=== PATIENT | male | born 1945 | race African-American/Black ===

== ENCOUNTER 2020-07-23 15:01 | Inpatient (IN) | payer MEDICARE, MEDICAID ==
[~2020-07-23] VITALS: Ht 182.9 cm; Wt 49.4 kg
[2020-07-23] MEDS ORDERED: SODIUM CHLORIDE 0.9% 1,000 ML IV ONE (15:30)
[2020-07-23 16:15] LABS: BASOPHILS % 0.1 % (0.0-2.0); EOSINOPHILS % 0.2 % (0.0-5.0); HEMATOCRIT. 39.3 % (42.0-52.0); MEAN CORPUSCULAR HEMOGLOBIN 29.9 pg (28.0-32.0); MEAN CORPUSCULAR VOLUME 90.2 fL (80.0-94.0); MEAN PLATELET VOLUME 9.9 fl (7.4-10.4); MONOCYTES % 5.7 % (2.0-8.0); PLATELET 85 x1000/uL (130-400); RED BLOOD CELL COUNT 4.36 mill/uL (4.7-6.1); RED CELL DISTRIBUTION WIDTH 14.3 % (11.6-14.6)
[2020-07-23 16:19] LABS: CHLORIDE 91 mEq/L (98-107)
[2020-07-23 16:24] LABS: ETHANOL BLOOD 17 mg/dL
[2020-07-23] MEDS ORDERED: AZITHROMYCIN 500 MG in DEXT 5% WATER 250 ML IV SCH (17:45)
[2020-07-23] MEDS ORDERED: CEFTRIAXONE 1 G PREMIX 50 ML IV ONE (17:45)
[2020-07-23] MEDS ORDERED: ACETAMINOPHEN 650MG SUPP PR PRN (19:00)
[2020-07-23] MEDS ORDERED: GUAIFENESIN 200MG/10ML SUGAR FREE UDC PO PRN (19:00)
[2020-07-23] MEDS ORDERED: CLONIDINE 0.1MG TABLET PO PRN (19:00)
[2020-07-23] MEDS ORDERED: ACETAMINOPHEN 325MG TABLET PO PRN (19:00)
[2020-07-23] MEDS ORDERED: NA PHOS,M-B/NA PHOS,DI-BA ENEMA 118ML PR PRN (19:00)
[2020-07-23] MEDS ORDERED: MAGNESIUM/ALUMINUM HYDROXIDE/SIMETHICONE 30ML UDC PO PRN (19:00)
[2020-07-23 19:45] LABS: KETONES URINE NEGATIVE (NEGATIVE); LEUKOCYTE ESTERASE URINE TRACE (NEGATIVE); NITRITE URINE NEGATIVE (NEGATIVE); OCCULT BLOOD URINE TRACE (NEGATIVE); PH URINE 5.5 (4.5-8.0); PROTEIN URINE NEGATIVE (NEGATIVE); SPECIFIC GRAVITY URINE 1.008 (1.005-1.030)
[2020-07-23 19:53] LABS: CLARITY URINE SLIGHTLY HAZY (CLEAR); COLOR URINE DARK YELLOW (YELLOW)
[2020-07-23 20:03] LABS: *AMPHETAMINES SCREEN URINE NEGATIVE (NEGATIVE)
[2020-07-23 20:04] LABS: *BARBITURATES SCREEN URINE NEGATIVE (NEGATIVE); *BENZODIAZEPINES SCREEN URINE NEGATIVE (NEGATIVE); *COCAINE SCREEN URINE PRESUMTIVE POSITIVE (NEGATIVE); METHADONE URINE SCREEN NEGATIVE (NEGATIVE); OPIATES URINE SCREEN NEGATIVE (NEGATIVE)
[2020-07-23 20:06] LABS: CANNABINOID URINE SCREEN NEGATIVE (NEGATIVE); PHENCYCLIDINE URINE SCREEN NEGATIVE (NEGATIVE)
[2020-07-23] MEDS: SODIUM CHLORIDE 0.9% 1,000 ML IV SCH (21:14)
[2020-07-24] VITALS (8 sets, daily range): BP systolic 102–133; BP diastolic 57–70
[2020-07-24] MEDS: TAMSULOSIN HCL 0.4MG SR CAPSULE PO SCH ×2 (01:14→08:49)
[2020-07-24] MEDS ORDERED: SUMA50TA16 PO (01:21)
[2020-07-24] MEDS ORDERED: OMEP40CA12 PO (01:21)
[2020-07-24 07:29] LABS: CHLORIDE 98 mEq/L (98-107)
[2020-07-24 07:32] LABS: HDL CHOLESTEROL 79 mg/dL (40-59)
[2020-07-24 07:34] LABS: LDL CHOLESTEROL 35 mg/dL (5-100)
[2020-07-24 07:40] LABS: BASOPHILS % 0.2 % (0.0-2.0); EOSINOPHILS % 1.9 % (0.0-5.0); HEMATOCRIT. 31.7 % (42.0-52.0); HEMOGLOBIN. 10.8 g/dL (14.0-18.0); LYMPHOCYTES % 14.2 % (20.0-50.0); MEAN CORPUSCULAR HEMOGLOBIN 30.2 pg (28.0-32.0); MEAN CORPUSCULAR VOLUME 88.7 fL (80.0-94.0); MEAN PLATELET VOLUME 10.6 fl (7.4-10.4); MONOCYTES % 5.1 % (2.0-8.0); NEUTROPHILS % 78.6 % (40.0-76.0); PLATELET 65 x1000/uL (130-400); RED BLOOD CELL COUNT 3.58 mill/uL (4.7-6.1); RED CELL DISTRIBUTION WIDTH 14.4 % (11.6-14.6)
[2020-07-24] MEDS ORDERED: POTASSIUM CHLORIDE 20MEQ TABLET SR PO SCH ×2 (12:00→16:00)
[2020-07-24] MEDS: ASPIRIN 81MG TABLET PO SCH (12:08)
[2020-07-24] MEDS: SODIUM CHLORIDE 0.9% 1,000 ML IV SCH (13:06)
[2020-07-24] MEDS ORDERED: MEGE40TA5 MT (13:29)
[2020-07-24] MEDS ORDERED: CEFTRIAXONE 1 G PREMIX 50 ML IV SCH (14:30)
[2020-07-24] MEDS: PREDNISONE 20MG TABLET PO SCH (15:23)
[2020-07-24] MEDS: DEXT 5%/0.9% NACL 1,000 ML IV SCH (15:24)
[2020-07-24 17:01] LABS: INR 1.1; PROTHROMBIN TIME 11.8 sec (9.6-11.0)
[2020-07-24] MEDS ORDERED: ENOXAPARIN 60MG/0.6ML SYR SUBCUT SCH (18:00)
[2020-07-24] MEDS: CEFTRIAXONE 1,000 MG in DEXTROSE 5% WATER 50 ML IV SCH (18:47)
[2020-07-24] MEDS: DILTIAZEM HCL 30MG TABLET PO SCH (22:53)
[2020-07-24] MEDS ORDERED: MAGNESIUM 2 G PREMIX 50 ML IV NR (23:30)
[2020-07-25] VITALS: BP 106/55
[2020-07-25] MEDS: DEXT 5%/0.9% NACL 1,000 ML IV SCH ×3 (00:30→20:30)
[2020-07-25 04:00] VITALS: BP 118/58
[2020-07-25 05:37] LABS: HEMATOCRIT. 31.5 % (42.0-52.0); HEMOGLOBIN. 10.8 g/dL (14.0-18.0); MEAN CORPUSCULAR HEMOGLOBIN 30.2 pg (28.0-32.0); MEAN CORPUSCULAR VOLUME 87.9 fL (80.0-94.0); MEAN PLATELET VOLUME 10.7 fl (7.4-10.4); PLATELET 57 x1000/uL (130-400); RED BLOOD CELL COUNT 3.59 mill/uL (4.7-6.1); RED CELL DISTRIBUTION WIDTH 14.2 % (11.6-14.6)
[2020-07-25 06:19] LABS: CHLORIDE 100 mEq/L (98-107)
[2020-07-25] MEDS: DILTIAZEM HCL 30MG TABLET PO SCH ×3 (06:27→21:54)
[2020-07-25 06:43] LABS: VITAMIN B12 SERUM 1011 pg/mL (211-911)
[2020-07-25 08:00] VITALS: BP 115/66
[2020-07-25] MEDS: ASPIRIN 81MG TABLET PO SCH (08:21)
[2020-07-25] MEDS: TAMSULOSIN HCL 0.4MG SR CAPSULE PO SCH (08:33)
[2020-07-25] MEDS: PREDNISONE 20MG TABLET PO SCH (08:34)
[2020-07-25 08:59] LABS: T4 FREE 0.93 ng/dL (0.76-1.46)
[2020-07-25] MEDS ORDERED: APIXABAN 5 MG TABLET PO SCH (09:00)
[2020-07-25 12:00] VITALS: BP 108/56
[2020-07-25 14:27] LABS: PLATELET ESTIMATE DECREASED
[2020-07-25 16:00] VITALS: BP 94/56
[2020-07-25] MEDS ORDERED: IPRATROPIUM/ALBUTEROL 0.5-3(2.5)MG/3ML NEB HHN PRN (16:15)
[2020-07-25] MEDS: CEFTRIAXONE 1,000 MG in DEXTROSE 5% WATER 50 ML IV SCH (17:36)
[2020-07-25 18:14] LABS: CREATINE KINASE 354 IU/L (39-308)
[2020-07-25 18:15] LABS: CREATINE KINASE MB FRACTION 6.7 ng/mL (0.5-3.6)
[2020-07-25 20:00] VITALS: BP 113/46
[2020-07-25] MEDS: IPRATROPIUM/ALBUTEROL 0.5-3(2.5)MG/3ML NEB HHN SCH (20:43)
[2020-07-25] MEDS: DIPHENHYDRAMINE 50MG/ML VIAL IV PRN (21:54)
[2020-07-26] VITALS (9 sets, daily range): BP systolic 97–151; BP diastolic 51–92
[2020-07-26] MEDS: IPRATROPIUM/ALBUTEROL 0.5-3(2.5)MG/3ML NEB HHN SCH (01:11)
[2020-07-26] MEDS: DILTIAZEM HCL 30MG TABLET PO SCH ×2 (06:18→15:23)
[2020-07-26 06:53] LABS: HEMATOCRIT. 33.3 % (42.0-52.0); MEAN CORPUSCULAR HEMOGLOBIN 29.6 pg (28.0-32.0); MEAN CORPUSCULAR VOLUME 89.8 fL (80.0-94.0); MEAN PLATELET VOLUME 10.5 fl (7.4-10.4); PLATELET 59 x1000/uL (130-400); RED BLOOD CELL COUNT 3.71 mill/uL (4.7-6.1); RED CELL DISTRIBUTION WIDTH 14.3 % (11.6-14.6)
[2020-07-26 07:06] LABS: CHLORIDE 103 mEq/L (98-107)
[2020-07-26 07:14] LABS: PHOSPHORUS 1.3 mg/dL (2.5-4.9)
[2020-07-26 07:15] LABS: CREATINE KINASE 244 IU/L (39-308)
[2020-07-26] MEDS ORDERED: DIGOXIN 500MCG/2ML AMP IV NR ×2 (07:28→12:15)
[2020-07-26] MEDS: ASPIRIN 81MG TABLET PO SCH (09:00)
[2020-07-26] MEDS ORDERED: ONDANSETRON HCL 4MG/2ML INJ IV PRN ×2 (09:00→11:45)
[2020-07-26] MEDS ORDERED: FUROSEMIDE 40MG/4ML VIAL IVP SCH ×2 (09:00→13:30)
[2020-07-26] MEDS: TAMSULOSIN HCL 0.4MG SR CAPSULE PO SCH (09:00)
[2020-07-26] MEDS ORDERED: FAMOTIDINE 20MG/2ML VIAL IV SCH ×2 (09:00→13:30)
[2020-07-26 11:36] LABS: BG BASE EXCESS -1.4 mmol/L (-2.0-2.0); BG CARBOXYHEMOGLOBIN 0.3 % (0.5-1.5); BG DEOXYHEMOGLOBIN 16.2 % (0.0-5.0); BG FRACTION INSPIRED OXYGEN 32; BG HCO3 ACT 21.8 mmol/L (22.0-26.0); BG METHEMOGLOBIN 0.2 % (0.0-1.5); BG OXYGEN SATURATION 83.7 % (92.0-98.5); BG OXYHEMOGLOBIN 83.3 % (94.0-97.0); BG PCO2 31.9 mmHg (35.0-45.0); BG PH 7.452 (7.350-7.450); BG PO2 45.7 mmHg (75.0-100.0); BG SAMPLE SITE RIGHT BRACHIAL; BG VENT MODE NASAL CANNULA
[2020-07-26] MEDS ORDERED: SODIUM PHOS,M-BASIC-D-BASIC 10 MM in DEXT 5% WATER 246.6667 ML IV NR (13:00)
[2020-07-26] MEDS: PANTOPRAZOLE SODIUM 40 MG/VIAL IV SCH ×2 (13:22→18:18)
[2020-07-26 13:54] LABS: PLATELET ESTIMATE DECREASED
[2020-07-26] MEDS: METOCLOPRAMIDE HCL 10MG/2ML VIAL IV SCH ×2 (14:54→18:23)
[2020-07-26 15:13] LABS: HEMATOCRIT 35.9 % (42.0-52.0)
[2020-07-26 16:03] LABS: BG BASE EXCESS -3.1 mmol/L (-2.0-2.0); BG CARBOXYHEMOGLOBIN 0.3 % (0.5-1.5); BG DEOXYHEMOGLOBIN 0.7 % (0.0-5.0); BG HCO3 ACT 18.9 mmol/L (22.0-26.0); BG METHEMOGLOBIN 0.2 % (0.0-1.5); BG OXYGEN SATURATION 99.3 % (92.0-98.5); BG OXYHEMOGLOBIN 98.8 % (94.0-97.0); BG PCO2 25.9 mmHg (35.0-45.0); BG PO2 248.3 mmHg (75.0-100.0); BG SAMPLE SITE RIGHT BRACHIAL; BG TOTAL HEMOGLOBIN 13.2 g/dL (12.0-18.0); BG VENT MODE MASK - BIPAP
[2020-07-26] MEDS: IPRATROPIUM BROMIDE (0.02%) 0.5MG/2.5ML NEB HHN SCH ×2 (16:34→20:28)
[2020-07-26] MEDS: CEFTRIAXONE 1,000 MG in DEXTROSE 5% WATER 50 ML IV SCH ×2 (18:19→18:20)
[2020-07-26] MEDS: DOCUSATE SODIUM 100MG CAPSULE PO PRN (18:19)
[2020-07-26 19:24] LABS: HEMATOCRIT 37.1 % (42.0-52.0); HEMOGLOBIN 12.2 g/dL (14.0-18.0)
[2020-07-26] MEDS ORDERED: DIGOXIN 500MCG/2ML AMP IV ONE (19:30)
[2020-07-26] MEDS: DILTIAZEM HCL 60MG TABLET PO SCH ×2 (21:49→22:00)
[2020-07-27] VITALS (14 sets, daily range): BP systolic 100–132; BP diastolic 25–74
[2020-07-27] MEDS: METOCLOPRAMIDE HCL 10MG/2ML VIAL IV SCH ×4 (00:16→18:11)
[2020-07-27] MEDS: IPRATROPIUM BROMIDE (0.02%) 0.5MG/2.5ML NEB HHN SCH ×5 (00:18→16:36)
[2020-07-27 01:03] LABS: HEMATOCRIT 36.1 % (42.0-52.0)
[2020-07-27] MEDS: DILTIAZEM HCL 60MG TABLET PO SCH ×4 (05:13→22:11)
[2020-07-27 06:41] LABS: CHLORIDE 100 mEq/L (98-107)
[2020-07-27 06:42] LABS: HEMATOCRIT. 34.4 % (42.0-52.0); HEMOGLOBIN. 11.5 g/dL (14.0-18.0); MEAN CORPUSCULAR HEMOGLOBIN 29.9 pg (28.0-32.0); MEAN CORPUSCULAR VOLUME 89.4 fL (80.0-94.0); MEAN PLATELET VOLUME 11.7 fl (7.4-10.4); RED BLOOD CELL COUNT 3.84 mill/uL (4.7-6.1); RED CELL DISTRIBUTION WIDTH 14.2 % (11.6-14.6)
[2020-07-27 06:45] LABS: PARTIAL THROMBOPLASTIN TIME 29.5 sec (23.4-31.0)
[2020-07-27 06:51] LABS: PLATELET 48 x1000/uL (130-400)
[2020-07-27] MEDS ORDERED: DIGOXIN 500MCG/2ML AMP IV SCH (08:00)
[2020-07-27] MEDS: PANTOPRAZOLE SODIUM 40 MG/VIAL IV SCH ×2 (08:53→18:11)
[2020-07-27] MEDS: TAMSULOSIN HCL 0.4MG SR CAPSULE PO SCH ×3 (08:55→09:46)
[2020-07-27] MEDS: METOPROLOL TARTRATE 25MG TABLET PO SCH ×2 (09:44→20:35)
[2020-07-27 10:54] LABS: PLATELET ESTIMATE MARKEDLY DECREASED
[2020-07-27 12:44] LABS: BG BASE EXCESS -0.6 mmol/L (-2.0-2.0); BG CARBOXYHEMOGLOBIN 0.3 % (0.5-1.5); BG DEOXYHEMOGLOBIN 9.4 % (0.0-5.0); BG FRACTION INSPIRED OXYGEN 32; BG HCO3 ACT 21.9 mmol/L (22.0-26.0); BG METHEMOGLOBIN 0.2 % (0.0-1.5); BG OXYGEN SATURATION 90.6 % (92.0-98.5); BG OXYHEMOGLOBIN 90.1 % (94.0-97.0); BG PCO2 29.5 mmHg (35.0-45.0); BG PH 7.489 (7.350-7.450); BG PO2 58.9 mmHg (75.0-100.0); BG SAMPLE SITE LEFT BRACHIAL; BG TOTAL HEMOGLOBIN 11.5 g/dL (12.0-18.0); BG VENT MODE NASAL CANNULA
[2020-07-27] MEDS ORDERED: FUROSEMIDE 40MG/4ML VIAL IVP NR (18:00)
[2020-07-27] MEDS: CEFTRIAXONE 1,000 MG in DEXTROSE 5% WATER 50 ML IV SCH (18:12)
[2020-07-27 18:36] LABS: BG BASE EXCESS 0.7 mmol/L (-2.0-2.0); BG CARBOXYHEMOGLOBIN 0.3 % (0.5-1.5); BG DEOXYHEMOGLOBIN 6.7 % (0.0-5.0); BG FRACTION INSPIRED OXYGEN 50; BG HCO3 ACT 23.7 mmol/L (22.0-26.0); BG METHEMOGLOBIN 0.2 % (0.0-1.5); BG OXYGEN SATURATION 93.3 % (92.0-98.5); BG OXYHEMOGLOBIN 92.8 % (94.0-97.0); BG PCO2 32.4 mmHg (35.0-45.0); BG PH 7.482 (7.350-7.450); BG PO2 66.8 mmHg (75.0-100.0); BG SAMPLE SITE RIGHT BRACHIAL; BG TOTAL HEMOGLOBIN 11.1 g/dL (12.0-18.0); BG VENT MODE MASK - VENTI
[2020-07-27] MEDS: IPRATROPIUM/ALBUTEROL 0.5-3(2.5)MG/3ML NEB HHN SCH (20:08)
[2020-07-28] VITALS (13 sets, daily range): BP systolic 91–123; BP diastolic 39–71
[2020-07-28] MEDS: METOCLOPRAMIDE HCL 10MG/2ML VIAL IV SCH ×5 (00:25→23:31)
[2020-07-28] MEDS: IPRATROPIUM/ALBUTEROL 0.5-3(2.5)MG/3ML NEB HHN SCH ×2 (01:56→20:23)
[2020-07-28 05:33] LABS: CHLORIDE 97 mEq/L (98-107)
[2020-07-28] MEDS: DILTIAZEM HCL 60MG TABLET PO SCH ×3 (05:36→21:31)
[2020-07-28 06:23] LABS: HEMATOCRIT. 32.2 % (42.0-52.0); MEAN CORPUSCULAR HEMOGLOBIN 30.3 pg (28.0-32.0); MEAN CORPUSCULAR VOLUME 88.7 fL (80.0-94.0); MEAN PLATELET VOLUME 9.3 fl (7.4-10.4); PLATELET 77 x1000/uL (130-400); RED BLOOD CELL COUNT 3.63 mill/uL (4.7-6.1); RED CELL DISTRIBUTION WIDTH 14.3 % (11.6-14.6)
[2020-07-28] MEDS ORDERED: POTASSIUM CHLORIDE 20MEQ TABLET SR PO SCH (08:00)
[2020-07-28] MEDS: PANTOPRAZOLE SODIUM 40 MG/VIAL IV SCH ×2 (08:38→16:05)
[2020-07-28] MEDS: TAMSULOSIN HCL 0.4MG SR CAPSULE PO SCH (08:40)
[2020-07-28] MEDS: METOPROLOL TARTRATE 25MG TABLET PO SCH ×2 (08:41→20:00)
[2020-07-28] MEDS ORDERED: POTASSIUM PHOS,M-BASIC-D-BASIC 10 MMOL in DEXT 5% WATER 246.6667 ML IV SCH (09:00)
[2020-07-28] MEDS: IPRATROPIUM BROMIDE (0.02%) 0.5MG/2.5ML NEB HHN SCH ×3 (09:32→16:50)
[2020-07-28] MEDS ORDERED: PROPOFOL 200MG/20ML VIAL IV ONE (09:34)
[2020-07-28] MEDS ORDERED: LIDOCAINE HCL/PF 1% 10 MG/ML 5ML VIAL ONE (09:34)
[2020-07-28] MEDS ORDERED: METOCLOPRAMIDE HCL 10MG/2ML VIAL IV SCH (10:30)
[2020-07-28 11:24] LABS: PLATELET ESTIMATE DECREASED
[2020-07-28] MEDS: CEFTRIAXONE 1,000 MG in DEXTROSE 5% WATER 50 ML IV SCH (17:35)
[2020-07-28] MEDS: DIPHENHYDRAMINE 50MG/ML VIAL IV PRN (20:54)
[2020-07-29] VITALS (12 sets, daily range): BP systolic 104–137; BP diastolic 46–80
[2020-07-29] MEDS: HALOPERIDOL LACTATE 5MG/ML VIAL IM PRN (00:05)
[2020-07-29] MEDS: DIPHENHYDRAMINE 50MG/ML VIAL IV PRN (01:04)
[2020-07-29] MEDS: IPRATROPIUM BROMIDE (0.02%) 0.5MG/2.5ML NEB HHN SCH ×5 (05:10→20:01)
[2020-07-29] MEDS: DILTIAZEM HCL 60MG TABLET PO SCH ×3 (05:11→21:41)
[2020-07-29] MEDS: METOCLOPRAMIDE HCL 10MG/2ML VIAL IV SCH ×3 (05:43→17:32)
[2020-07-29] MEDS: IPRATROPIUM/ALBUTEROL 0.5-3(2.5)MG/3ML NEB HHN SCH ×2 (08:15→12:21)
[2020-07-29] MEDS ORDERED: SODIUM BICARBONATE 4% (2.4MEQ) 5ML VIAL IV ONE (08:40)
[2020-07-29] MEDS: METOPROLOL TARTRATE 25MG TABLET PO SCH ×2 (11:00→21:00)
[2020-07-29] MEDS: TAMSULOSIN HCL 0.4MG SR CAPSULE PO SCH (11:01)
[2020-07-29] MEDS: PANTOPRAZOLE SODIUM 40 MG/VIAL IV SCH ×2 (11:01→17:32)
[2020-07-29] MEDS ORDERED: POTASSIUM CHLORIDE 20MEQ TABLET SR PO NR (15:30)
[2020-07-29] MEDS: CEFTRIAXONE 1,000 MG in DEXTROSE 5% WATER 50 ML IV SCH (17:32)
[2020-07-30] VITALS (13 sets, daily range): BP systolic 98–148; BP diastolic 48–87
[2020-07-30] MEDS: IPRATROPIUM BROMIDE (0.02%) 0.5MG/2.5ML NEB HHN SCH ×2 (00:38→04:28)
[2020-07-30] MEDS: METOCLOPRAMIDE HCL 10MG/2ML VIAL IV SCH ×4 (06:00→18:32)
[2020-07-30] MEDS: DILTIAZEM HCL 60MG TABLET PO SCH ×3 (06:00→22:25)
[2020-07-30 06:28] LABS: BASOPHILS % 1.3 % (0.0-2.0); EOSINOPHILS % 7.8 % (0.0-5.0); HEMATOCRIT. 30.1 % (42.0-52.0); LYMPHOCYTES % 8.7 % (20.0-50.0); MEAN CORPUSCULAR HEMOGLOBIN 29.6 pg (28.0-32.0); MEAN PLATELET VOLUME 9.9 fl (7.4-10.4); MONOCYTES % 5.5 % (2.0-8.0); NEUTROPHILS % 76.7 % (40.0-76.0); PLATELET 59 x1000/uL (130-400); RED BLOOD CELL COUNT 3.39 mill/uL (4.7-6.1); RED CELL DISTRIBUTION WIDTH 14.1 % (11.6-14.6)
[2020-07-30 07:36] LABS: CHLORIDE 101 mEq/L (98-107)
[2020-07-30] MEDS: METOPROLOL TARTRATE 25MG TABLET PO SCH ×2 (08:18→21:00)
[2020-07-30] MEDS: PANTOPRAZOLE SODIUM 40 MG/VIAL IV SCH (08:18)
[2020-07-30] MEDS: TAMSULOSIN HCL 0.4MG SR CAPSULE PO SCH (08:18)
[2020-07-30] MEDS ORDERED: DILT60TA35 PO (09:47)
[2020-07-30] MEDS ORDERED: METO5VIA3 IV (09:47)
[2020-07-30] MEDS ORDERED: AMIODARONE HCL 900 MG in DEXT 5% WATER 500 ML IV SCH (10:45)
[2020-07-30] MEDS: IPRATROPIUM/ALBUTEROL 0.5-3(2.5)MG/3ML NEB HHN SCH (13:24)
[2020-07-30] MEDS ORDERED: DIGOXIN 125MCG TABLET PO NR (13:30)
[2020-07-30] MEDS: CEFTRIAXONE 1,000 MG in DEXTROSE 5% WATER 50 ML IV SCH (18:32)
[2020-07-31] VITALS (12 sets, daily range): BP systolic 92–130; BP diastolic 48–80
[2020-07-31] MEDS: DILTIAZEM HCL 60MG TABLET PO SCH ×3 (05:34→21:54)
[2020-07-31] MEDS: PANTOPRAZOLE 40MG DR TABLET PO SCH (06:41)
[2020-07-31 07:24] LABS: BASOPHILS % 0.7 % (0.0-2.0); EOSINOPHILS % 4.7 % (0.0-5.0); HEMATOCRIT. 30.1 % (42.0-52.0); HEMOGLOBIN. 10.3 g/dL (14.0-18.0); LYMPHOCYTES % 11.1 % (20.0-50.0); MEAN CORPUSCULAR HEMOGLOBIN 30.3 pg (28.0-32.0); MEAN CORPUSCULAR VOLUME 88.7 fL (80.0-94.0); MEAN PLATELET VOLUME 9.8 fl (7.4-10.4); MONOCYTES % 8.1 % (2.0-8.0); NEUTROPHILS % 75.4 % (40.0-76.0); PLATELET 52 x1000/uL (130-400); RED CELL DISTRIBUTION WIDTH 14.4 % (11.6-14.6)
[2020-07-31 08:02] LABS: CHLORIDE 103 mEq/L (98-107)
[2020-07-31] MEDS: TAMSULOSIN HCL 0.4MG SR CAPSULE PO SCH (09:21)
[2020-07-31] MEDS: METOPROLOL TARTRATE 25MG TABLET PO SCH ×3 (09:21→21:19)
[2020-07-31] MEDS ORDERED: POTASSIUM CHLORIDE 20MEQ TABLET SR PO NR (15:00)
[2020-07-31] MEDS: CEFTRIAXONE 1,000 MG in DEXTROSE 5% WATER 50 ML IV SCH (17:56)
[2020-07-31] MEDS: DIGOXIN 125MCG TABLET PO SCH (17:57)
[2020-07-31] MEDS: DIPHENHYDRAMINE 50MG/ML VIAL IV PRN (21:55)
[2020-07-31 22:11] LABS: HEPATITIS B SURFACE ANTIGEN NEGATIVE
[2020-07-31 22:41] LABS: HEPATITIS A AB IGM NEGATIVE (NEGATIVE)
[2020-08-01] VITALS (32 sets, daily range): BP systolic 50–144; BP diastolic 33–92
[2020-08-01] MEDS: DILTIAZEM HCL 60MG TABLET PO SCH ×3 (05:23→22:00)
[2020-08-01 07:03] LABS: HAPTOGLOBIN 82 mg/dL (30-200)
[2020-08-01] MEDS: TAMSULOSIN HCL 0.4MG SR CAPSULE PO SCH (08:05)
[2020-08-01] MEDS: PANTOPRAZOLE 40MG DR TABLET PO SCH (08:05)
[2020-08-01] MEDS: METOPROLOL TARTRATE 25MG TABLET PO SCH ×2 (08:05→20:11)
[2020-08-01] MEDS: DOCUSATE SODIUM 100MG CAPSULE PO PRN (08:05)
[2020-08-01] MEDS ORDERED: SODIUM CHLORIDE 0.9% 1,000 ML IV SCH ×2 (17:00→18:00)
[2020-08-01] MEDS ORDERED: PHENYLEPHRINE 50 MG in DEXT 5% WATER 245 ML IV PRN (17:15)
[2020-08-01] MEDS: DIGOXIN 125MCG TABLET PO SCH (18:23)
[2020-08-01 18:56] LABS: BASOPHILS % 0.5 % (0.0-2.0); EOSINOPHILS % 3.4 % (0.0-5.0); HEMATOCRIT. 28.3 % (42.0-52.0); HEMOGLOBIN. 9.6 g/dL (14.0-18.0); LYMPHOCYTES % 14.9 % (20.0-50.0); MEAN CORPUSCULAR HEMOGLOBIN 30.2 pg (28.0-32.0); MEAN CORPUSCULAR VOLUME 88.9 fL (80.0-94.0); MEAN PLATELET VOLUME 11.4 fl (7.4-10.4); MONOCYTES % 10.5 % (2.0-8.0); NEUTROPHILS % 70.7 % (40.0-76.0); PLATELET 60 x1000/uL (130-400); RED BLOOD CELL COUNT 3.18 mill/uL (4.7-6.1); RED CELL DISTRIBUTION WIDTH 14.5 % (11.6-14.6)
[2020-08-01] MEDS: RISPERIDONE 0.5MG TABLET PO SCH (21:02)
[2020-08-01] MEDS: HALOPERIDOL LACTATE 5MG/ML VIAL IM PRN (21:02)
[2020-08-01] MEDS ORDERED: ALBUMIN HUMAN 25GM/100ML (25%) IV SCH (22:15)
[2020-08-02] VITALS (44 sets, daily range): BP systolic 75–147; BP diastolic 34–95
[2020-08-02] MEDS: DILTIAZEM HCL 60MG TABLET PO SCH (04:45)
[2020-08-02 09:49] LABS: HEMATOCRIT. 29.4 % (42.0-52.0); HEMOGLOBIN. 9.8 g/dL (14.0-18.0); MEAN CORPUSCULAR HEMOGLOBIN 29.6 pg (28.0-32.0); MEAN CORPUSCULAR VOLUME 88.9 fL (80.0-94.0); MEAN PLATELET VOLUME 11.4 fl (7.4-10.4); PLATELET 53 x1000/uL (130-400); RED BLOOD CELL COUNT 3.31 mill/uL (4.7-6.1); RED CELL DISTRIBUTION WIDTH 14.4 % (11.6-14.6)
[2020-08-02 09:59] LABS: CHLORIDE 104 mEq/L (98-107)
[2020-08-02 10:01] LABS: LYMPHOCYTES % 21.1 % (20.0-50.0); NEUTROPHILS % 66.9 % (40.0-76.0)
[2020-08-02] MEDS: PANTOPRAZOLE 40MG DR TABLET PO SCH (10:29)
[2020-08-02] MEDS: ZINC SULFATE 220 MG ( 50 ) CAPSULE PO SCH (10:29)
[2020-08-02] MEDS: RISPERIDONE 0.5MG TABLET PO SCH ×2 (10:29→21:00)
[2020-08-02] MEDS: ASCORBIC ACID 500 MG TABLET PO SCH (10:30)
[2020-08-02] MEDS: METOPROLOL TARTRATE 25MG TABLET PO SCH ×2 (10:30→21:00)
[2020-08-02] MEDS: TAMSULOSIN HCL 0.4MG SR CAPSULE PO SCH (10:30)
[2020-08-02] MEDS ORDERED: POTASSIUM PHOS,M-BASIC-D-BASIC 15 MMOL in DEXT 5% WATER 245 ML IV NR (13:00)
[2020-08-02] MEDS ORDERED: MAGNESIUM 2 G PREMIX 50 ML IV NR (13:30)
[2020-08-02 15:06] LABS: ANTI-NUCLEAR ANTIBODIES DIRECT Negative (Negative)
[2020-08-02] MEDS: DIGOXIN 125MCG TABLET PO SCH (17:16)
[2020-08-02] MEDS ORDERED: SODIUM CHLORIDE 0.9% 1,000 ML IV NR (22:21)
[2020-08-02] MEDS: FLUDROCORTISONE ACETATE 0.1MG TABLET PO SCH (22:26)
[2020-08-02] MEDS ORDERED: ALBUMIN HUMAN 25GM/100ML (25%) IV NR (23:30)
[2020-08-03] VITALS: BP 102/55
[2020-08-03 04:00] VITALS: BP 90/49
[2020-08-03 05:00] VITALS: BP 98/45
[2020-08-03] MEDS: PANTOPRAZOLE 40MG DR TABLET PO SCH (05:56)
[2020-08-03 07:59] VITALS: BP 104/58
[2020-08-03] MEDS: TAMSULOSIN HCL 0.4MG SR CAPSULE PO SCH (08:26)
[2020-08-03] MEDS: FLUDROCORTISONE ACETATE 0.1MG TABLET PO SCH (08:26)
[2020-08-03] MEDS: ASCORBIC ACID 500 MG TABLET PO SCH (08:26)
[2020-08-03] MEDS: ZINC SULFATE 220 MG ( 50 ) CAPSULE PO SCH (08:26)
[2020-08-03] MEDS: MIDODRINE HCL 5MG TABLET PO SCH ×3 (08:26→17:50)
[2020-08-03] MEDS ORDERED: TAMSULOSIN HCL 0.4MG SR CAPSULE PO NR (09:45)
[2020-08-03 12:00] VITALS: BP 95/47
[2020-08-03 13:10] LABS: BASOPHILS % 0.7 % (0.0-2.0); EOSINOPHILS % 2.2 % (0.0-5.0); HEMATOCRIT. 25.8 % (42.0-52.0); HEMOGLOBIN. 8.6 g/dL (14.0-18.0); LYMPHOCYTES % 13.2 % (20.0-50.0); MEAN CORPUSCULAR HEMOGLOBIN 29.7 pg (28.0-32.0); MEAN PLATELET VOLUME 11.2 fl (7.4-10.4); NEUTROPHILS % 74.9 % (40.0-76.0); RED CELL DISTRIBUTION WIDTH 14.8 % (11.6-14.6)
[2020-08-03 13:12] LABS: CHLORIDE 108 mEq/L (98-107)
[2020-08-03 13:17] LABS: PLATELET 44 x1000/uL (130-400)
[2020-08-03 13:19] LABS: PHOSPHORUS 2.2 mg/dL (2.5-4.9)
[2020-08-03 16:00] VITALS: BP 101/49
[2020-08-04 09:11] LABS: IMMUNOGLOBULIN A 305 mg/dL (61-437); IMMUNOGLOBULIN G 763 mg/dL (603-1613); IMMUNOGLOBULIN M 37 mg/dL (15-143)
== END 2020-08-03 18:56 | disposition left against medical advice (07) | DRG 871 ==
LOC: ER 15:01 → 7EST 17:44 → CANRESERV 20:01 → ENRESERV 20:01 → 6WST 07-24 22:32 → 5EST 07-26 13:08 → CVICU 08-01 17:50 → 5WST 08-02 12:43
PROVIDERS: ADMIT Family Medicine; ATTEND Family Medicine
PROC: 5A09557 Assistance with Respiratory Ventilation, Greater than 96 Consecutive Hours, Continuous Positive Airway Pressure (ICD-10-PCS; 2020-07-26)
PROC: 30233R1 Transfusion of Nonautologous Platelets into Peripheral Vein, Percutaneous Approach (ICD-10-PCS; 2020-07-27)
PROC: 0DB68ZX Excision of Stomach, Via Natural or Artificial Opening Endoscopic, Diagnostic (ICD-10-PCS; principal; 2020-07-28)
PROC: 0W993ZZ Drainage of Right Pleural Cavity, Percutaneous Approach (ICD-10-PCS; 2020-07-30)
DX: A41.9 Sepsis, unspecified organism (principal); E43 Unspecified severe protein-calorie malnutrition; J69.0 Pneumonitis due to inhalation of food and vomit; J96.01 Acute respiratory failure with hypoxia; R57.1 Hypovolemic shock; K29.71 Gastritis, unspecified, with bleeding; G92 Toxic encephalopathy; E87.1 Hypo-osmolality and hyponatremia; D69.3 Immune thrombocytopenic purpura; E87.2 Acidosis; Z68.1 Body mass index [BMI] 19.9 or less, adult; J91.0 Malignant pleural effusion; J68.0 Bronchitis and pneumonitis due to chemicals, gases, fumes and vapors; E87.6 Hypokalemia; I48.91 Unspecified atrial fibrillation; D69.6 Thrombocytopenia, unspecified; F14.10 Cocaine abuse, uncomplicated; I27.20 Pulmonary hypertension, unspecified; I11.0 Hypertensive heart disease with heart failure; D64.9 Anemia, unspecified; D69.59 Other secondary thrombocytopenia; E83.42 Hypomagnesemia; F03.90 Unspecified dementia, unspecified severity, without behavioral disturbance, psychotic disturbance, mood disturbance, and anxiety; F10.20 Alcohol dependence, uncomplicated; I34.0 Nonrheumatic mitral (valve) insufficiency; I50.9 Heart failure, unspecified; K70.9 Alcoholic liver disease, unspecified; K44.9 Diaphragmatic hernia without obstruction or gangrene; K31.89 Other diseases of stomach and duodenum; K22.5 Diverticulum of esophagus, acquired; T51.0X1A Toxic effect of ethanol, accidental (unintentional), initial encounter; K70.0 Alcoholic fatty liver; K75.9 Inflammatory liver disease, unspecified; R45.850 Homicidal ideations; Z20.828 Contact with and (suspected) exposure to other viral communicable diseases; L89.90 Pressure ulcer of unspecified site, unspecified stage; T40.5X1A Poisoning by cocaine, accidental (unintentional), initial encounter; R33.9 Retention of urine, unspecified; E86.1 Hypovolemia; E11.649 Type 2 diabetes mellitus with hypoglycemia without coma; Z87.11 Personal history of peptic ulcer disease; Y92.89 Other specified places as the place of occurrence of the external cause; Z79.899 Other long term (current) drug therapy; R62.7 Adult failure to thrive
CPT/HCPCS: 32555; 36415; 36600; 71045; 74018; 76604; 76700; 80048; 80051; 80053; 80061; 80076; 80305; 80320; 81003; 82040; 82105; 82375; 82550; 82553; 82607; 82784; 82805; 83010; 83036; 83605; 83615; 83735; 83880; 84100; 84295; 84439; 84443; 84484; 85014; 85018; 85025; 85049; 85379; 86038; 86334; 86705; 86709; 86803; 86850; 86900; 87340; 87426; 87635; 88305; 88313; 89060; 92523; 93005; 93306; 93970; 94640; 94660; 96365; 97162; 97164; 97166; 97168; 97530; 99285; C9113; J0456; J0696; J1160; J1200; J1630; J1940; J2370; J2405; J2704; J2765; J3475; J3490; J7030; J7040; J7042; J7060; J7512; P9034; P9047; G0480